=== PATIENT | male | born 1950 | race African-American/Black ===

== ENCOUNTER 2022-04-30 16:01 | Inpatient (IN) | payer OTHER ==
[2022-04-30 17:23] VITALS: BMI 23.8
[2022-04-30] MEDS ORDERED: DICYCLOMINE HCL 10 MG CAPSULE PO PRN (18:04)
[2022-04-30] MEDS ORDERED: METHOCARBAMOL 500 MG TABLET PO PRN (18:04)
[2022-04-30] MEDS ORDERED: BISMUTH SUBSALICYLATE 524 MG/30 ML PO PRN (18:04)
[2022-04-30] MEDS ORDERED: NICOTINE 10 MG CARTRIDGE (INHALER) IH PRN (18:04)
[2022-04-30] MEDS ORDERED: IBUPROFEN 600 MG TABLET (FP) PO PRN (18:04)
[2022-04-30] MEDS ORDERED: ONDANSETRON *ODT* 4 MG TABLET SL PRN (18:04)
[2022-04-30] MEDS ORDERED: ACETAMINOPHEN 325 MG TABLET (FP) PO PRN (18:04)
[2022-04-30] MEDS ORDERED: MAG HYDROX/AL HYDROX/SIMETH 30 ML UNIT-DOSE CUP PO PRN (18:04)
[2022-04-30] MEDS ORDERED: LOPERAMIDE HCL 2 MG CAPSULE PO PRN (18:04)
[2022-04-30] MEDS ORDERED: MAGNESIUM HYDROX 2400MG/30ML ORAL SUSPENSION 30 ML CUP PO PRN (18:04)
[2022-04-30] MEDS ORDERED: IBUPROFEN 400 MG TABLET (FP) PO PRN (18:04)
[2022-04-30] MEDS ORDERED: NICOTINE POLACRILEX 2 MG GUM BUC PRN (18:04)
[2022-04-30] MEDS ORDERED: MAGNESIUM CITRATE 300 ML BOTTLE PO PRN (18:04)
[2022-04-30] MEDS ORDERED: BENZOCAINE/MENTHOL (CHLORASEPTIC ) LOZENGE MM PRN (18:04)
[2022-04-30] MEDS ORDERED: methaDONE HCL 10 MG TABLET (FOR DETOX USE ONLY) PO ONE (22:01)
[2022-04-30] MEDS ORDERED: methaDONE HCL 10 MG TABLET (FOR DETOX USE ONLY) ONE (22:09)
[2022-04-30] MEDS ORDERED: hydrOXYzine PAMOATE 25 MG CAPSULE (FP) PO ONE (22:10)
[2022-05-01] MEDS: THIAMINE HCL 100 MG TABLET (FP) PO SCH ×2 (01:25→22:15)
[2022-05-01] MEDS ORDERED: methaDONE HCL 10 MG TABLET (FOR DETOX USE ONLY) ONE (08:52)
[2022-05-01] MEDS: PRENATAL VITAMINS W/ FOLIC ACID TABLET (FP) PO SCH (10:23)
[2022-05-01] MEDS: hydrOXYzine PAMOATE 25 MG CAPSULE (FP) PO PRN ×2 (17:52→22:16)
[2022-05-01] MEDS: cloNIDine HCL 0.1 MG TABLET PO PRN (17:53)
[2022-05-01] MEDS: MELATONIN 5 MG TABLETS PO PRN (22:15)
[2022-05-02] MEDS ORDERED: methaDONE HCL 10 MG TABLET (FOR DETOX USE ONLY) PO ONE (10:00)
[2022-05-02] MEDS: PRENATAL VITAMINS W/ FOLIC ACID TABLET (FP) PO SCH (10:04)
[2022-05-02] MEDS: ACETAMINOPHEN 325 MG TABLET (FP) PO PRN (18:29)
[2022-05-02] MEDS: hydrOXYzine PAMOATE 25 MG CAPSULE (FP) PO PRN ×2 (18:30→22:24)
[2022-05-02] MEDS: cloNIDine HCL 0.1 MG TABLET PO PRN ×2 (18:30→22:24)
[2022-05-02] MEDS: THIAMINE HCL 100 MG TABLET (FP) PO SCH (22:23)
[2022-05-02] MEDS: MELATONIN 5 MG TABLETS PO PRN (22:23)
[2022-05-03] MEDS ORDERED: methaDONE HCL 10 MG TABLET (FOR DETOX USE ONLY) ONE (08:39)
[2022-05-03] MEDS: PRENATAL VITAMINS W/ FOLIC ACID TABLET (FP) PO SCH (10:10)
[2022-05-03 10:42] LABS: HEMATOCRIT 27.8 % (35.4-49); HEMOGLOBIN 9.2 GM/dL (11.7-16.9); MCH 29.2 pg (25.7-33.7); MCHC 32.9 g/dl (32.0-35.9); MEAN CELL VOLUME 88.6 fl (80-96); MEAN PLT VOLUME 8.5 fl (7.5-11.1); PLATELET COUNT 188 10^3/uL (134-434); RBC 3.14 M/mm3 (4.00-5.60); RDW 12.1 % (11.9-15.9); WHITE BLOOD COUNT 5.9 K/mm3 (4.0-10.0)
[2022-05-03 10:53] LABS: ALBUMIN 3.8 g/dl (3.4-5.0); BLOOD UREA NITROGEN 23.4 mg/dL (7-18); CALCIUM 9.5 mg/dL (8.5-10.1)
[2022-05-03 10:57] LABS: CREATININE 2.3 mg/dL (0.55-1.3)
[2022-05-03 10:58] LABS: TOT PROT 7.2 g/dl (6.4-8.2)
[2022-05-03] MEDS: hydrOXYzine PAMOATE 25 MG CAPSULE (FP) PO PRN ×2 (17:40→22:15)
[2022-05-03] MEDS: ASPIRIN 81 MG CHEWABLE TABLETS PO SCH (18:05)
[2022-05-03] MEDS: amLODIPine BESYLATE 5 MG TABLET (FP) PO SCH (18:05)
[2022-05-03] MEDS: THIAMINE HCL 100 MG TABLET (FP) PO SCH (22:15)
[2022-05-03] MEDS: GABAPENTIN 300 MG CAPSULE PO SCH (22:15)
[2022-05-03] MEDS: MELATONIN 5 MG TABLETS PO PRN (22:15)
[2022-05-03] MEDS: ACETAMINOPHEN 325 MG TABLET (FP) PO PRN (22:16)
[2022-05-03] MEDS ORDERED: LISINOPRIL 5 MG TABLET PO ONE (23:42)
[2022-05-04] MEDS: GABAPENTIN 300 MG CAPSULE PO SCH ×3 (06:41→22:47)
[2022-05-04] MEDS ORDERED: methaDONE HCL 10 MG TABLET (FOR DETOX USE ONLY) PO ONE (10:00)
[2022-05-04] MEDS: amLODIPine BESYLATE 5 MG TABLET (FP) PO SCH (10:27)
[2022-05-04] MEDS: PRENATAL VITAMINS W/ FOLIC ACID TABLET (FP) PO SCH (10:27)
[2022-05-04] MEDS: ASPIRIN 81 MG CHEWABLE TABLETS PO SCH (10:27)
[2022-05-04] MEDS: MELATONIN 5 MG TABLETS PO PRN (22:47)
[2022-05-04] MEDS: THIAMINE HCL 100 MG TABLET (FP) PO SCH (22:47)
[2022-05-05] MEDS: GABAPENTIN 300 MG CAPSULE PO SCH ×3 (05:32→21:33)
[2022-05-05] MEDS: PRENATAL VITAMINS W/ FOLIC ACID TABLET (FP) PO SCH (09:55)
[2022-05-05] MEDS: amLODIPine BESYLATE 5 MG TABLET (FP) PO SCH (09:55)
[2022-05-05] MEDS: ASPIRIN 81 MG CHEWABLE TABLETS PO SCH (09:55)
[2022-05-05 21:37] VITALS: BP 120/78; PULSE 66; TEMP 98.2
[2022-05-05] MEDS: THIAMINE HCL 100 MG TABLET (FP) PO SCH (23:24)
== END 2022-05-05 23:45 | disposition short-term general hospital (02) | DRG 897 ==
LOC: YASAS 16:01 → Y6N 21:26 → UNDOADMIN 21:26 → Y6N 21:28 → Y3N 23:14
PROVIDERS: ADMIT Allergy & Immunology; ATTEND Surgery
PROC: HZ2ZZZZ Detoxification Services for Substance Abuse Treatment (ICD-10-PCS; principal; 2022-04-30)
DX: F11.23 Opioid dependence with withdrawal (principal); F14.20 Cocaine dependence, uncomplicated; F17.210 Nicotine dependence, cigarettes, uncomplicated; I10 Essential (primary) hypertension; M17.12 Unilateral primary osteoarthritis, left knee; R94.4 Abnormal results of kidney function studies; R79.89 Other specified abnormal findings of blood chemistry; Z99.89 Dependence on other enabling machines and devices
CPT/HCPCS: 36415; 80053; 82540; 84520; 85027; 86780; C9803-CS; J0735; Q0162; U0003; U0005

== ENCOUNTER 2022-05-05 11:49 | Observation (INO) | payer OTHER ==
[2022-05-05 13:50] LABS: BASO % 0.5 % (0-2.0); EOS % 4.2 % (0-4.5); HEMATOCRIT 31.1 % (35.4-49); HEMOGLOBIN 10.3 GM/dL (11.7-16.9); LYMPH % 13.6 % (8-40); MCH 29.6 pg (25.7-33.7); MCHC 33.1 g/dl (32.0-35.9); MEAN CELL VOLUME 89.5 fl (80-96); NEUT % 72.7 % (42.8-82.8); PLATELET COUNT 203 10^3/uL (134-434); RBC 3.48 M/mm3 (4.00-5.60); RDW 12.3 % (11.9-15.9); WHITE BLOOD COUNT 8.4 K/mm3 (4.0-10.0)
[2022-05-05 14:32] LABS: CALCIUM 9.2 mg/dL (8.5-10.1)
[2022-05-05 14:33] LABS: BLOOD UREA NITROGEN 37.1 mg/dL (7-18); MAGNESIUM 2.1 mg/dL (1.8-2.4)
[2022-05-05 14:35] LABS: CREATININE 3.2 mg/dL (0.55-1.3)
[2022-05-05 14:37] LABS: BILIRUBIN,TOTAL 0.5 mg/dL (0.2-1); TOT PROT 7.7 g/dl (6.4-8.2)
[2022-05-05] MEDS ORDERED: ACETAMINOPHEN 325 MG TABLET (FP) PO PRN (15:17)
[2022-05-05 18:59] VITALS: BMI 22.6
[2022-05-05] MEDS: GABAPENTIN 300 MG CAPSULE PO SCH (21:37)
[2022-05-05] MEDS ORDERED: MELATONIN 5 MG TABLETS PO ONE (21:58)
[2022-05-06 02:51] LABS: URINE APPEARANCE CLEAR; URINE BILIRUBIN NEGATIVE (NEGATIVE); URINE COLOR YELLOW; URINE GLUCOSE (UA) NEGATIVE (NEGATIVE); URINE KETONE TRACE (NEGATIVE); URINE LEUK ESTERASE NEGATIVE (NEGATIVE); URINE NITRITE NEGATIVE (NEGATIVE); URINE PROTEIN TRACE (NEGATIVE); URINE UROBILINOGEN 0.2 mg/dL (0.2-1.0)
[2022-05-06] MEDS: GABAPENTIN 300 MG CAPSULE PO SCH ×3 (05:55→22:25)
[2022-05-06 09:34] LABS: HEMATOCRIT 33.5 % (35.4-49); MCH 29.6 pg (25.7-33.7); MCHC 32.9 g/dl (32.0-35.9); MEAN CELL VOLUME 89.9 fl (80-96); MEAN PLT VOLUME 8.2 fl (7.5-11.1); PLATELET COUNT 229 10^3/uL (134-434); RBC 3.73 M/mm3 (4.00-5.60); RDW 12.4 % (11.9-15.9); WHITE BLOOD COUNT 9.1 K/mm3 (4.0-10.0)
[2022-05-06 10:02] LABS: ALBUMIN 4.4 g/dl (3.4-5.0); BLOOD UREA NITROGEN 37.5 mg/dL (7-18); CALCIUM 9.4 mg/dL (8.5-10.1)
[2022-05-06 10:07] LABS: BILIRUBIN,TOTAL 0.7 mg/dL (0.2-1); TOT PROT 8.3 g/dl (6.4-8.2)
[2022-05-06] MEDS: ASPIRIN 81 MG CHEWABLE TABLETS PO SCH (12:16)
[2022-05-06] MEDS: ENOXAPARIN NA (PORCINE) 30 MG/0.3 ML DISP.SYRIN SQ SCH (15:27)
[2022-05-06] MEDS: amLODIPine BESYLATE 5 MG TABLET (FP) PO SCH (15:27)
[2022-05-06] MEDS: SODIUM CHLORIDE 0.45% 1,000 ML IV SCH (15:28)
[2022-05-06] MEDS ORDERED: MELATONIN 5 MG TABLETS PO ONE (23:48)
[2022-05-07] MEDS: GABAPENTIN 300 MG CAPSULE PO SCH ×3 (06:03→21:13)
[2022-05-07] MEDS: ASPIRIN 81 MG CHEWABLE TABLETS PO SCH (11:01)
[2022-05-07] MEDS: ENOXAPARIN NA (PORCINE) 30 MG/0.3 ML DISP.SYRIN SQ SCH (11:01)
[2022-05-07] MEDS: amLODIPine BESYLATE 5 MG TABLET (FP) PO SCH (12:11)
[2022-05-07 12:16] LABS: BASO % 0.5 % (0-2.0); HEMATOCRIT 30.8 % (35.4-49); LYMPH % 15.5 % (8-40); MCH 29.2 pg (25.7-33.7); MCHC 32.3 g/dl (32.0-35.9); MEAN CELL VOLUME 90.1 fl (80-96); MEAN PLT VOLUME 8.6 fl (7.5-11.1); PLATELET COUNT 230 10^3/uL (134-434); RBC 3.42 M/mm3 (4.00-5.60); RDW 12.2 % (11.9-15.9); WHITE BLOOD COUNT 10.1 K/mm3 (4.0-10.0)
[2022-05-07 12:38] LABS: ALBUMIN 4.1 g/dl (3.4-5.0); CALCIUM 9.4 mg/dL (8.5-10.1)
[2022-05-07 12:40] LABS: BLOOD UREA NITROGEN 33.8 mg/dL (7-18)
[2022-05-07 12:43] LABS: CREATININE 2.5 mg/dL (0.55-1.3)
[2022-05-07 12:44] LABS: BILIRUBIN,TOTAL 0.7 mg/dL (0.2-1); TOT PROT 7.4 g/dl (6.4-8.2)
[2022-05-07] MEDS: SODIUM CHLORIDE 0.45% 1,000 ML IV SCH (19:36)
[2022-05-08] MEDS: GABAPENTIN 300 MG CAPSULE PO SCH ×3 (05:09→21:51)
[2022-05-08] MEDS: ENOXAPARIN NA (PORCINE) 30 MG/0.3 ML DISP.SYRIN SQ SCH (09:45)
[2022-05-08] MEDS: ASPIRIN 81 MG CHEWABLE TABLETS PO SCH (09:46)
[2022-05-08] MEDS: amLODIPine BESYLATE 5 MG TABLET (FP) PO SCH (09:46)
[2022-05-08 11:24] LABS: BASO % 0.4 % (0-2.0); EOS % 4.3 % (0-4.5); HEMATOCRIT 31.9 % (35.4-49); HEMOGLOBIN 10.4 GM/dL (11.7-16.9); LYMPH % 14.2 % (8-40); MCH 29.2 pg (25.7-33.7); MCHC 32.4 g/dl (32.0-35.9); MEAN CELL VOLUME 90.1 fl (80-96); MEAN PLT VOLUME 8.6 fl (7.5-11.1); MONO % 6.5 % (3.8-10.2); NEUT % 74.6 % (42.8-82.8); PLATELET COUNT 216 10^3/uL (134-434); RBC 3.54 M/mm3 (4.00-5.60); RDW 12.1 % (11.9-15.9); WHITE BLOOD COUNT 7.5 K/mm3 (4.0-10.0)
[2022-05-08 11:47] LABS: BLOOD UREA NITROGEN 29.4 mg/dL (7-18); CALCIUM 9.6 mg/dL (8.5-10.1)
[2022-05-08 11:49] LABS: ALBUMIN 4.4 g/dl (3.4-5.0)
[2022-05-08 11:51] LABS: CREATININE 2.2 mg/dL (0.55-1.3)
[2022-05-08 11:53] LABS: BILIRUBIN,TOTAL 0.8 mg/dL (0.2-1); TOT PROT 7.9 g/dl (6.4-8.2)
[2022-05-09] MEDS: GABAPENTIN 300 MG CAPSULE PO SCH (06:02)
[2022-05-09] MEDS: amLODIPine BESYLATE 5 MG TABLET (FP) PO SCH (10:30)
[2022-05-09] MEDS: ASPIRIN 81 MG CHEWABLE TABLETS PO SCH (10:30)
[2022-05-09] MEDS: ENOXAPARIN NA (PORCINE) 30 MG/0.3 ML DISP.SYRIN SQ SCH (10:31)
[2022-05-09 10:34] VITALS: BP 128/76; PULSE 76; TEMP 98
== END 2022-05-09 12:40 | disposition home or self-care (01) ==
LOC: JER 11:49 → UNDOADMOB 15:09 → JERBED 15:09 → INTOOBSV 15:09 → JERBED 15:17 → J5S 18:00
PROVIDERS: ADMIT Internal Medicine
PROC: 3E023GC Introduction of Other Therapeutic Substance into Muscle, Percutaneous Approach (ICD-10-PCS; principal; 2022-05-05)
DX: I13.10 Hypertensive heart and chronic kidney disease without heart failure, with stage 1 through stage 4 chronic kidney disease, or unspecified chronic kidney disease (principal); N18.9 Chronic kidney disease, unspecified; N17.9 Acute kidney failure, unspecified; M17.12 Unilateral primary osteoarthritis, left knee; F19.10 Other psychoactive substance abuse, uncomplicated; F11.20 Opioid dependence, uncomplicated; F17.210 Nicotine dependence, cigarettes, uncomplicated
CPT/HCPCS: 36415; 71045-TC-FY; 76775-TC; 80053; 81003; 83036; 83735; 84443; 84484; 85025; 85027; 86705; 86803; 86850; 86900; 86901; 87522; 93005; 93010; 94761; 96372; 99285-25; C9803-CS; G0378; U0003; U0005

== ENCOUNTER 2022-12-09 09:29 | Inpatient (IN) | payer OTHER ==
[2022-12-09 10:02] VITALS: BMI 22.8
[2022-12-09] MEDS ORDERED: NICOTINE 10 MG CARTRIDGE (INHALER) IH PRN (10:25)
[2022-12-09] MEDS ORDERED: LOPERAMIDE HCL 2 MG CAPSULE PO PRN (10:25)
[2022-12-09] MEDS ORDERED: POLYETHYLENE GLYCOL (HEALTHYLAX) 3350 17 GM PACKET PO PRN (10:25)
[2022-12-09] MEDS ORDERED: methaDONE HCL 10 MG TABLET (FOR DETOX USE ONLY) PO ONE (10:25)
[2022-12-09] MEDS ORDERED: ACETAMINOPHEN 325 MG TABLET (FP) PO PRN ×2 (10:25)
[2022-12-09] MEDS ORDERED: DICYCLOMINE HCL 10 MG CAPSULE PO PRN (10:25)
[2022-12-09] MEDS ORDERED: IBUPROFEN 400 MG TABLET (FP) PO PRN (10:25)
[2022-12-09] MEDS ORDERED: BENZOCAINE/MENTHOL (CHLORASEPTIC ) LOZENGE MM PRN (10:25)
[2022-12-09] MEDS ORDERED: MAG HYDROX/AL HYDROX/SIMETH 30 ML UNIT-DOSE CUP PO PRN (10:25)
[2022-12-09] MEDS ORDERED: cloNIDine HCL 0.1 MG TABLET PO PRN (10:25)
[2022-12-09] MEDS ORDERED: BISMUTH SUBSALICYLATE 524 MG/30 ML PO PRN (10:25)
[2022-12-09] MEDS ORDERED: NALOXONE HCL (KLOXXADO) 8 MG SPRAY NS PRN (10:25)
[2022-12-09] MEDS ORDERED: MAGNESIUM HYDROX 2400MG/30ML ORAL SUSPENSION 30 ML CUP PO PRN (10:25)
[2022-12-09] MEDS ORDERED: ONDANSETRON *ODT* 4 MG TABLET SL PRN (10:25)
[2022-12-09] MEDS ORDERED: methaDONE HCL 10 MG TABLET (FOR DETOX USE ONLY) ONE (11:07)
[2022-12-09] MEDS ORDERED: PRENATAL VITAMINS W/ FOLIC ACID TABLET (FP) PO ONE (11:20)
[2022-12-09] MEDS: PRENATAL VITAMINS W/ FOLIC ACID TABLET (FP) PO SCH (11:24)
[2022-12-09] MEDS: hydrOXYzine PAMOATE 25 MG CAPSULE (FP) PO PRN (11:42)
[2022-12-09] MEDS: METHOCARBAMOL 500 MG TABLET PO PRN (11:42)
[2022-12-09] MEDS: IBUPROFEN 600 MG TABLET (FP) PO PRN (11:42)
[2022-12-09] MEDS: NICOTINE 14 MG/24 HOURS TOPICAL PATCH TD SCH (11:42)
[2022-12-09] MEDS: GABAPENTIN 300 MG CAPSULE PO SCH ×2 (14:09→22:33)
[2022-12-09 15:49] LABS: CALCIUM 9.4 mg/dL (8.5-10.1)
[2022-12-09 15:50] LABS: ALBUMIN 4.1 g/dl (3.4-5.0); BLOOD UREA NITROGEN 33.5 mg/dL (7-18)
[2022-12-09 15:53] LABS: CREATININE 2.7 mg/dL (0.55-1.3)
[2022-12-09 15:54] LABS: TOT PROT 7.4 g/dl (6.4-8.2)
[2022-12-09 15:55] LABS: BILIRUBIN,TOTAL 0.6 mg/dL (0.2-1)
[2022-12-09 16:10] LABS: HEMATOCRIT 27.2 % (35.4-49); HEMOGLOBIN 8.6 GM/dL (11.7-16.9); MCHC 31.7 g/dl (32.0-35.9); MEAN CELL VOLUME 91.3 fl (80-96); MEAN PLT VOLUME 8.5 fl (7.5-11.1); PLATELET COUNT 165 10^3/uL (134-434); RBC 2.97 M/mm3 (4.00-5.60); RDW 12.5 % (11.9-15.9); WHITE BLOOD COUNT 6.1 K/mm3 (4.0-10.0)
[2022-12-09 18:40] LABS: HIV INTERPRETATION NEGATIVE (NEGATIVE)
[2022-12-09] MEDS: THIAMINE HCL 100 MG TABLET (FP) PO SCH (22:33)
[2022-12-09] MEDS: MELATONIN 5 MG TABLETS PO SCH (22:33)
[2022-12-10] MEDS: GABAPENTIN 300 MG CAPSULE PO SCH (05:38)
[2022-12-10] MEDS: IBUPROFEN 600 MG TABLET (FP) PO PRN (05:38)
[2022-12-10] MEDS: PRENATAL VITAMINS W/ FOLIC ACID TABLET (FP) PO SCH (10:31)
[2022-12-10] MEDS: amLODIPine BESYLATE 5 MG TABLET (FP) PO SCH (10:31)
[2022-12-10] MEDS: NICOTINE 14 MG/24 HOURS TOPICAL PATCH TD SCH (10:33)
[2022-12-10] MEDS: FERROUS SO4 300 MG/5 ML ORAL SOLN UNIT DOSE CUPS PO SCH (10:34)
[2022-12-10] MEDS: GABAPENTIN 100 MG CAPSULE PO SCH ×2 (13:13→22:21)
[2022-12-10] MEDS: MELATONIN 5 MG TABLETS PO SCH (22:21)
[2022-12-10] MEDS: THIAMINE HCL 100 MG TABLET (FP) PO SCH (22:21)
[2022-12-11] MEDS: IBUPROFEN 600 MG TABLET (FP) PO PRN ×2 (05:50→20:45)
[2022-12-11] MEDS: GABAPENTIN 100 MG CAPSULE PO SCH ×3 (05:50→22:49)
[2022-12-11] MEDS ORDERED: methaDONE HCL 10 MG TABLET (FOR DETOX USE ONLY) PO ONE (10:00)
[2022-12-11] MEDS: amLODIPine BESYLATE 5 MG TABLET (FP) PO SCH (10:08)
[2022-12-11] MEDS: FERROUS SO4 300 MG/5 ML ORAL SOLN UNIT DOSE CUPS PO SCH (10:08)
[2022-12-11] MEDS: PRENATAL VITAMINS W/ FOLIC ACID TABLET (FP) PO SCH (10:09)
[2022-12-11] MEDS: NICOTINE 14 MG/24 HOURS TOPICAL PATCH TD SCH (10:11)
[2022-12-11] MEDS: LIDOCAINE 5% TOPICAL PATCH TP SCH (11:02)
[2022-12-11] MEDS: METHOCARBAMOL 500 MG TABLET PO PRN (18:19)
[2022-12-11] MEDS: hydrOXYzine PAMOATE 25 MG CAPSULE (FP) PO PRN (20:45)
[2022-12-11] MEDS: MELATONIN 5 MG TABLETS PO SCH (22:49)
[2022-12-11] MEDS: LIDOCAINE PATCH REMOVAL MC SCH (22:49)
[2022-12-11] MEDS: THIAMINE HCL 100 MG TABLET (FP) PO SCH (22:50)
[2022-12-11] MEDS ORDERED: LISINOPRIL 5 MG TABLET PO ONE (23:17)
[2022-12-12] MEDS: GABAPENTIN 100 MG CAPSULE PO SCH ×3 (05:57→22:47)
[2022-12-12] MEDS: hydrOXYzine PAMOATE 25 MG CAPSULE (FP) PO PRN ×2 (05:58→22:47)
[2022-12-12] MEDS: LIDOCAINE 5% TOPICAL PATCH TP SCH (09:59)
[2022-12-12] MEDS: FERROUS SO4 300 MG/5 ML ORAL SOLN UNIT DOSE CUPS PO SCH (09:59)
[2022-12-12] MEDS: PRENATAL VITAMINS W/ FOLIC ACID TABLET (FP) PO SCH (09:59)
[2022-12-12] MEDS: amLODIPine BESYLATE 10 MG TABLET (FP) PO SCH (10:00)
[2022-12-12] MEDS: NICOTINE 14 MG/24 HOURS TOPICAL PATCH TD SCH (10:02)
[2022-12-12] MEDS ORDERED: LISINOPRIL 5 MG TABLET PO ONE (21:59)
[2022-12-12] MEDS: METHOCARBAMOL 500 MG TABLET PO PRN (22:47)
[2022-12-12] MEDS: THIAMINE HCL 100 MG TABLET (FP) PO SCH (22:48)
[2022-12-12] MEDS: MELATONIN 5 MG TABLETS PO SCH (22:49)
[2022-12-12] MEDS: LIDOCAINE PATCH REMOVAL MC SCH (23:52)
[2022-12-13] MEDS: METHOCARBAMOL 500 MG TABLET PO PRN (06:07)
[2022-12-13] MEDS: GABAPENTIN 100 MG CAPSULE PO SCH ×3 (06:09→22:50)
[2022-12-13] MEDS: LIDOCAINE 5% TOPICAL PATCH TP SCH (09:54)
[2022-12-13] MEDS: FERROUS SO4 300 MG/5 ML ORAL SOLN UNIT DOSE CUPS PO SCH (09:55)
[2022-12-13] MEDS: NICOTINE 14 MG/24 HOURS TOPICAL PATCH TD SCH (09:56)
[2022-12-13] MEDS: amLODIPine BESYLATE 10 MG TABLET (FP) PO SCH (09:56)
[2022-12-13] MEDS: PRENATAL VITAMINS W/ FOLIC ACID TABLET (FP) PO SCH (09:57)
[2022-12-13] MEDS: IBUPROFEN 600 MG TABLET (FP) PO PRN (09:57)
[2022-12-13] MEDS ORDERED: methaDONE HCL 10 MG TABLET (FOR DETOX USE ONLY) PO ONE (10:00)
[2022-12-13 19:36] LABS: ALBUMIN 4.2 g/dl (3.4-5.0); BLOOD UREA NITROGEN 28.4 mg/dL (7-18); CALCIUM 9.4 mg/dL (8.5-10.1); CREATININE 2.5 mg/dL (0.55-1.3)
[2022-12-13 21:22] VITALS: RESP 17
[2022-12-13] MEDS: MELATONIN 5 MG TABLETS PO SCH (22:50)
[2022-12-13] MEDS: LIDOCAINE PATCH REMOVAL MC SCH (22:50)
[2022-12-13] MEDS: THIAMINE HCL 100 MG TABLET (FP) PO SCH (22:50)
[2022-12-14] MEDS: hydrOXYzine PAMOATE 25 MG CAPSULE (FP) PO PRN (02:32)
[2022-12-14] MEDS: GABAPENTIN 100 MG CAPSULE PO SCH ×2 (06:03→13:09)
[2022-12-14 09:44] VITALS: BP 100/69; PULSE 66; TEMP 98.2
[2022-12-14] MEDS: FERROUS SO4 300 MG/5 ML ORAL SOLN UNIT DOSE CUPS PO SCH (11:08)
[2022-12-14] MEDS: LIDOCAINE 5% TOPICAL PATCH TP SCH (11:08)
[2022-12-14] MEDS: amLODIPine BESYLATE 10 MG TABLET (FP) PO SCH (11:09)
[2022-12-14] MEDS: PRENATAL VITAMINS W/ FOLIC ACID TABLET (FP) PO SCH (11:09)
[2022-12-14] MEDS: NICOTINE 14 MG/24 HOURS TOPICAL PATCH TD SCH (11:09)
== END 2022-12-14 13:13 | disposition home or self-care (01) | DRG 897 ==
LOC: YASAS 09:29 → Y6N 11:11
PROVIDERS: ADMIT Allergy & Immunology; ATTEND Family Medicine
PROC: HZ2ZZZZ Detoxification Services for Substance Abuse Treatment (ICD-10-PCS; principal; 2022-12-09)
DX: F11.23 Opioid dependence with withdrawal (principal); F14.20 Cocaine dependence, uncomplicated; F17.210 Nicotine dependence, cigarettes, uncomplicated; D64.9 Anemia, unspecified; N18.9 Chronic kidney disease, unspecified; I12.9 Hypertensive chronic kidney disease with stage 1 through stage 4 chronic kidney disease, or unspecified chronic kidney disease; E78.5 Hyperlipidemia, unspecified; G62.9 Polyneuropathy, unspecified; M17.12 Unilateral primary osteoarthritis, left knee; Z99.89 Dependence on other enabling machines and devices
CPT/HCPCS: 36415; 80053; 80069; 85027; 86780; 87389; C9803-CS; Q0162; U0003; U0005